=== PATIENT | male | born 1965 | race Caucasian/White ===

== ENCOUNTER 2021-02-01 12:16 | Emergency (ER) | payer MEDICAID ==
[~2021-02-01] VITALS: Ht 188 cm; Wt 122.0 kg
[2021-02-01] MEDS ORDERED: CLINDAMYCIN HCL 150MG CAPSULE PO ONE (12:45)
[2021-02-01] MEDS ORDERED: KETOROLAC 15MG/ML VIAL IV ONE (12:45)
[2021-02-01] MEDS ORDERED: KETOROLAC 30MG/ML VIAL IV ONE (13:00)
[2021-02-01] MEDS ORDERED: TETANUS, DIPHTHERIA, PERTUSSIS VAC/PF 0.5ML (>10YR OLD) IM ONE (13:00)
[2021-02-01 13:12] LABS: BASOPHILS % 0.7 % (0.0-2.0); EOSINOPHILS % 2.2 % (0.0-5.0); HEMATOCRIT. 44.7 % (42.0-52.0); HEMOGLOBIN. 14.8 g/dL (14.0-18.0); LYMPHOCYTES % 26.1 % (20.0-50.0); MEAN CORPUSCULAR HEMOGLOBIN 29.4 pg (28.0-32.0); MEAN CORPUSCULAR VOLUME 88.7 fL (80.0-94.0); MEAN PLATELET VOLUME 9.3 fl (7.4-10.4); MONOCYTES % 12.7 % (2.0-8.0); NEUTROPHILS % 58.3 % (40.0-76.0); PLATELET 224 x1000/uL (130-400); RED BLOOD CELL COUNT 5.04 mill/uL (4.7-6.1); RED CELL DISTRIBUTION WIDTH 13.6 % (11.6-14.6)
[2021-02-01 13:15] LABS: CHLORIDE 107 mEq/L (98-107)
[2021-02-01] MEDS ORDERED: IOHEXOL-300 100 ML BOTTLE ONE (15:36)
[2021-02-01] MEDS ORDERED: AMOXICILLIN/POTASSIUM CLAVULANATE 875/125MG TAB PO ONE (16:00)
[2021-02-01] MEDS ORDERED: IBUP-2029 MT (16:47)
[2021-02-01] MEDS ORDERED: AMOX-424 MT (16:47)
[2021-02-01] MEDS ORDERED: CLIN300C12 MT (16:47)
[2021-02-01 17:12] VITALS: BP 124/78
== END 2021-02-01 17:14 | disposition home or self-care (01) ==
LOC: ER 12:16
DX: L02.11 Cutaneous abscess of neck (principal); M54.2 Cervicalgia
CPT/HCPCS: 10060; 36415; 70491; 80048; 85025; 90471; 90715; 96374; 99285; J1885; Q9967

== ENCOUNTER 2021-03-30 10:23 | Emergency (ER) | payer MEDICAID ==
[~2021-03-30] VITALS: Ht 188 cm; Wt 120.0 kg
[~2021-03-30 10:23] MED LIST: AMOX-424 MT; CLIN300C12 MT; IBUP-2029 MT
[2021-03-30 10:33] VITALS: BP 158/99
[2021-03-30] MEDS ORDERED: CLIN300C12 MT (11:03)
== END 2021-03-30 11:11 | disposition home or self-care (01) ==
LOC: ER 11:02
DX: L03.221 Cellulitis of neck (principal)
CPT/HCPCS: 99283

== ENCOUNTER 2021-05-26 14:13 | Emergency (ER) | payer MEDICAID ==
[~2021-05-26] VITALS: Ht 182.9 cm; Wt 102.0 kg
[2021-05-26] MEDS ORDERED: IBUP-2028 MT (16:47)
[2021-05-26 17:22] VITALS: BP 134/85
== END 2021-05-26 17:24 | disposition home or self-care (01) ==
LOC: ER 14:13
DX: M79.641 Pain in right hand (principal); M25.531 Pain in right wrist; M79.631 Pain in right forearm; M25.521 Pain in right elbow; M25.511 Pain in right shoulder; G89.11 Acute pain due to trauma; R03.0 Elevated blood-pressure reading, without diagnosis of hypertension; Y00.XXXA Assault by blunt object, initial encounter; Y93.89 Activity, other specified; Y92.89 Other specified places as the place of occurrence of the external cause
CPT/HCPCS: 73080; 73090; 73110; 73130; 99284